=== PATIENT | female | born 1955 | race African-American/Black ===

== ENCOUNTER 2024-12-31 15:58 | Observation (INO) | payer MEDICARE, MEDICAID, SELFPAY ==
[2024-12-31] VITALS (14 sets, daily range): BP systolic 115–123; BP diastolic 46–76; PULSE 70–82; RESP 14–27; TEMP 36.4–36.8; O2SAT 93–100; BMI 20.7
[2024-12-31] MEDS: 0.9 % SODIUM CHLORIDE 1000ML 1,000 ML 999 ML IV (12:35)
[2024-12-31 12:44] LABS: Hematocrit 36.7 % (37.0-47.0); Hemoglobin 11.8 g/dL (12.2-16.2); Immature Granulocytes % 0.6 %; Mean Corpuscular HGB Conc 32.2 g/dL (31.8-35.4); Mean Corpuscular Hemoglobin 28.7 pg (27.0-31.2); Mean Corpuscular Volume 89.3 fl (81-99); Nucleated Red Blood Cells % 0 %; Platelet Count 502 K/mm3 (142-424); Red Blood Count 4.11 M/mm3 (4.20-5.40); Red Cell Distribution Width-SD 38.5 fL; Reticulocyte % (Auto) 1.9 % (0.9-3.2); White Blood Count 9.6 K/mm3 (4.8-10.8)
[2024-12-31 12:53] LABS: Activated Partial Thrombo Time 25.1 seconds (22.8-30.6); INR 1.16 (0.9-1.1); Prothrombin Time 12.7 seconds (10.1-12.5)
[2024-12-31 14:18] LABS: Vitamin B12 162 pg/mL (239-931)
[2024-12-31 14:52] LABS: Anion Gap 12.6 mEq/L (5-15); Blood Urea Nitrogen 15 mg/dl (7-17); Carbon Dioxide 26 mmol/L (22.0-30.0); Chloride 101 mmol/L (98-107); Creatinine,Serum 0.90 mg/dl (0.52-1.04); Estimated Glomerular Filt Rate 62 ml/min (>60); GFR (African American) 75 ML/MIN (>60); Glucose 109 mg/dl (74-100); Potassium 4.6 mmoL/L (3.5-5.1); Sodium 135 mmol/L (136-145)
[2024-12-31 14:53] LABS: Alanine Aminotransferase 14 U/L (12-78); Aspartate Amino Transferase 25 U/L (14-36); Bilirubin,Total 0.5 mg/dl (0.2-1.3); Calcium 12.9 mg/dl (8.4-10.2)
[2024-12-31 14:54] LABS: Albumin Level 2.9 g/dl (3.5-5.0); Albumin/Globulin Ratio 1.0 (1.1-1.8); Alkaline Phosphatase 174 U/L (38-126); Globulin 3.0 g/dL (1.3-3.2); Total Protein,Serum 5.9 g/dl (6.3-8.2)
[2024-12-31] MEDS: VITAMIN B-12 1,000 MCG 1ML VIAL 1000 MCG (15:13)
[2024-12-31 15:19] LABS: Ferritin 524 ng/ml (11.1-264)
[2024-12-31 15:38] LABS: Iron 38 ug/dL (37-170)
[2024-12-31 15:54] LABS: Total Iron Binding Capacity 186 ug/dL (265-497)
--- NOTE | 2024-12-31 16:08 | PC.NURSE ---
Patient arrived to ICU at this time.
--- NOTE | 2024-12-31 16:17 | PC.NURSE ---
1400-Called report to [place] in step down then pt taken to ICU by wheelchair. Pt's sister and niece present with pt.
--- NOTE | 2024-12-31 16:49 | EXP.HP ---
History of Present Illness *Admission Date: 12/31/24 *Reason for visit:: Hypercalcemia, weakness *History of present illness: Ms. Cartagena is a 69-year-old female with history of glaucoma, on eyedrops but no other medications. No other significant history. She presents with hypercalcemia identified on outpatient labs/preop labs to oncology clinic. She reports that for the past 6 months she been having abnormal uterine bleeding. Was found to have fibroids, 1 of concerning appearance by her edging machine catcher.Be having hysterectomy at [facility] when she was found to have hypercalcemia on preoperative labs. Calcium was 12.7. On repeat labs on arrival today to oncology, found to have calcium of 12.8. 1 L of IV fluids administered in infusion prior to checking her calcium level. Oncology was therefore concerned and requested admission for further management of hypercalcemia. Patient reports some mild constipation but does have bowel movements every day. Denies any change in mentation, muscle cramps, change in mood. No nausea or vomiting. Increased weakness however. Getting around with a wheelchair due to fatigue and weakness. This been going on for several months. Progressing over the past month. Stable on room air. Afebrile. Alert and oriented x 4. Family at bedside [facility] Disclaimer: The information contained in this section may have been updated after the patient was seen, as this information can be updated by other users. Medical History Fibroid tumor Surgical History H/O section Social History Smoking Status: Never smoker alcohol intake: never current occupational status: retired Travel in the last 8 weeks?: None Have you lived/traveled outside US in past 30 days?: No Contact w/someone who lives/traveled outside US past 30 days?: No Exposure to someone with infectious disease in past 14 days?: No Do you have a fever (greater than 100.4 F or 38 C)?: No Have you tested positive for COVID-19?: No Exposed to someone with COVID-19 in past 14 days?: No Do you have a sore throat?: No Do you have a cough?: No Do you have any weakness?: No Do you have any diarrhea?: No Are you experiencing any unusual bleeding?: No Do you have any muscle aches/pain?: No Do you have any abdominal pain?: No Are you experiencing loss of taste or smell?: No Other Medical History Have you received the Flu Vaccine for this season: Yes Have you received the Pneumonia Vaccine: No Review of Systems Review of Systems Review of systems (narrative): 14 point review of systems performed, pertinent positives and negatives as per [facility] Meds Home Medications and Allergies Home Medications ?Medication ?Instructions ?Recorded ?Confirmed ?Type bimatoprost 0.01 % eye drops 1 drp Eye-Both HS 12/31/24 12/31/24 History ([place]igan) timolol maleate 0.5 % eye drops 1 drp Eye-Both DAILY 12/31/24 12/31/24 History New Prescriptions to Start Prescriptions: Allergies Allergy/AdvReac Type Severity Reaction Status Date / Time No Known Allergies Allergy Verified 12/31/24 11:12 Exam Data for Last 24 hours Vital signs and Labs for Last 24 Hours: Temp Pulse Resp BP Pulse Ox O2 Del Method 98.2 F 78 16 116/58 L 93 L Room Air 12/31/24 16:18 12/31/24 16:21 12/31/24 15:15 12/31/24 16:18 12/31/24 16:13 12/31/24 16:13 Laboratory Results - last 24 hr 12/31/24 12:20: WBC 9.6, RBC 4.11 L, Hgb 11.8 L, Hct 36.7 L, MCV 89.3, MCH 28.7, MCHC 32.2, RDW 11.9, Plt Count 502 H, MPV 9.7, Neut % (Auto) 72.4, Lymph % (Auto) 17.1, [place] % (Auto) 9.4 H, Eos % (Auto) 0.2, Baso % (Auto) 0.3, Neut # (Auto) 6.9, Lymph # (Auto) 1.6, [place] # (Auto) 0.9, Eos # (Auto) 0.0, Baso # (Auto) 0.0, Retic Count (auto) 1.9, PT 12.7 H, INR 1.16 H, APTT 25.1, Sodium 135 L, Potassium 4.6, Chloride 101, Carbon Dioxide 26, Anion Gap 12.6, BUN 15, Creatinine 0.90, Estimated GFR 62, Est GFR ( Amer) 75, Glucose 109 H, Calcium 12.9 H*, Iron 38, TIBC 186 L, Iron Saturation 20.49813, Ferritin 524 H, Total Bilirubin 0.5, AST 25, ALT 14, Alkaline Phosphatase 174 H, Lactate Dehydrogenase 216 L, Total Protein 5.9 L, Albumin 2.9 L, Globulin 3.0, Albumin/Globulin Ratio 1.0 L, Vitamin B12 162 L, PTH Intact 14.4, Direct Antiglob Test Negative I & O for Last 24 hours: Intake & Output 12/28/24 12/29/24 12/30/24 12/31/24 23:59 23:59 23:59 23:59 Intake Total 1000 / 1000 Balance 1000 / 1000 Weight 58.4 kg Constitutional Constitutional: no acute distress, average body habitus and cooperative *Routine HEENT Exam Head: Present normocephalic Eye: Present EOMI and PERRL ENT: Present mucous membranes moist *Routine Neck Exam Neck: Present supple; Absent lymphadenopathy *Routine Respiratory Exam Respiratory: Present CTA bilaterally *Routine Cardiovascular Exam Cardiovascular: Present RRR *Routine Abdominal Exam Abdominal: Present soft, normoactive bowel sounds and tenderness (Left upper quadrant) *Routine Rectal Exam Rectal:: deferred *Routine Genitalia Exam Genitalia:: deferred *Routine Extremities Exam Extremities: Absent cyanosis, clubbing or edema *Routine Skin Exam Skin: Present warm; Absent rash *Routine Neurological Exam Neurological: Present alert, oriented X3 and moving all extremities; Absent altered mental status Assessment and Plan *Assessment and plan (1) Hypercalcemia: Status: Acute Category: Medical Code(s): E83.52 - Hypercalcemia (2) Blood loss anemia: Status: Acute Category: Medical Code(s): D50.0 - Iron deficiency anemia secondary to blood loss (chronic) (3) Glaucoma: Status: Acute Category: Medical Code(s): H40.9 - Unspecified glaucoma (4) Hypoalbuminemia: Status: Acute Category: Medical Code(s): E88.09 - Other disorders of plasma-protein metabolism, not elsewhere classified (5) Uterine fibroid: Status: Acute Category: Medical Code(s): D25.9 - Leiomyoma of uterus, unspecified (6) Abnormal uterine bleeding: Status: Acute Category: Medical Code(s): N93.9 - Abnormal uterine and vaginal bleeding, unspecified Plan 69-year-old female with abnormal uterine bleeding. On her preop testing prior to hysterectomy was found to have hypercalcemia. Sent to oncology clinic for evaluation. Had discussion with oncologist to request admission for treatment of hypercalcemia and further workup of patient's anemia. I decided to admit for further care. Calcium severely elevated at 12.8. Initiating medical management. Necessitating inpatient care. Problems addressed as follows: Anemia Abnormal uterine bleeding Hypercalcemia Hypoalbuminemia - Patient has anemia with hemoglobin 11.8, has been having abnormal uterine bleeding for 6 months - Seen in oncology today, discussed case with oncologist, request admission for management of hypercalcemia. Also requests B12 injections daily while admitted. Has low B12 level at 162. - Albumin low at 2.9, unclear etiology. - Further workup for hypercalcemia including CT with contrast of chest abdomen pelvis - PTH intact of 14, within normal range. Total protein low at 5.9. Liver enzymes normal. Ferritin high at 524. Calcium 12.9. TIBC of 186. Iron saturation 20%. MCV normal at 89. - Repeat CBC, CMP, magnesium ordered for the morning - Ionized calcium, haptoglobin, peripheral smear and reticulocyte count pending - Will consider gynecology eval in the morning if bleeding continues to persist and is significant Initiate zoledronic acid 4 mg IV once in the morning for hypercalcemia Initiate calcitonin 250 units subcu twice daily LR at 100 cc an hour along with Lasix 40 mg IV once. Resume home timolol and bimatoprost eyedrops for glaucoma Lovenox 40 mg subcu daily Regular diet Full code
--- NOTE | 2024-12-31 17:01 | PC.NURSE ---
Primary RN educated patient on authorization of release of information to get patients records from [facility]. Patient verbalizes understanding. Paperwork faxed and placed in patients chart. Continuation of care plan.
--- NOTE | 2024-12-31 17:05 | DIET.NUTRFU ---
Addendum entered by Darleen Santiago RD, LD 12/31/24 17:09: Saw Dr Tinoco earlier today, She reports that over the last approximately 2 months she has lost 15 pounds with decreased appetite. Will add high protein milkshake and monitor Original Note: Consulted for decreased appetite at home, ordered regular diet. Will monitor intake and evaluate for supplement need.
[2024-12-31] MEDS: LACTATED RINGERS 1000ML 1,000 ML 100 ML IV (17:30)
--- NOTE | 2024-12-31 17:30 | PC.NURSE ---
notified of patients complaint of vaginal bleeding. Per intake specialist, wants Vitamin B12 daily x7 days. notified. No new orders received. Continuation of care plan.
--- NOTE | 2024-12-31 17:32 | PC.NURSE ---
Primary RN notified that Calcitonin medication as ordered on MAY is unavailable at this time. No new orders received. Continuation of care plan.
[2024-12-31 18:30] LABS: Folate 13.80 ng/mL
[2024-12-31] MEDS: FUROSEMIDE 40MG/4ML VIAL 40 MG IV (18:44)
--- NOTE | 2024-12-31 19:00 | PC.NURSE ---
Records obtained from [facility] at this time. notified. Continuation of care plan.
--- NOTE | 2024-12-31 19:54 | HMH.ITSTN ---
This grade teacher spoke with hospitalist Anika regarding premedication for this patient. Anika stated that the solu-medrol had to be given 4 hours prior to the patient receiving contrast and the benadryl had to be given 1 hour prior. Anika stated that MD Patrick said that the scan can wait until tomorrow morning. This grade teacher spoke with the patients nurse and the nurse will begin premedicating the patient at 6 am.
[2025-01-01] VITALS (30 sets, daily range): BP systolic 98–124; BP diastolic 44–73; PULSE 64–88; RESP 12–23; TEMP 36.5–37.1; O2SAT 91–100; BMI 20.3
[2025-01-01] MEDS: LACTATED RINGERS 1000ML 1,000 ML 100 ML IV (03:55)
[2025-01-01] MEDS: METHYLPREDNISOLONE SOD SUCC 125MG VIAL 125 MG IV (05:52)
--- NOTE | 2025-01-01 06:00 | CT_ITS ---
PROCEDURE INFORMATION: Exam: CT Chest With Contrast; Diagnostic Exam date and time: 01/01/2025 10:14 AM Age: 69 years old Clinical indication: Mass, lump, or swelling in the chest; Additional info: Eval for masses, has unexplained hypercalcemia TECHNIQUE: Imaging protocol: Diagnostic computed tomography of the chest with contrast. Radiation optimization: All CT scans at this facility use at least one of these dose optimization techniques: automated exposure control; mA and/or kV adjustment per patient size (includes targeted exams where dose is matched to clinical indication); or iterative reconstruction. Contrast material: ISOVUE; Contrast volume: 75 ml; Contrast route: IV; COMPARISON: CT CHEST W CON 01/01/2025 10:14 AM FINDINGS: Lungs: Multiple nodules in both lungs likely represent metastatic disease. Mild patchy opacities in both lung bases likely represent atelectasis or infection. Pleural spaces: Unremarkable. No pneumothorax. No pleural effusion. Heart: Unremarkable. No cardiomegaly. No pericardial effusion. Mediastinal space: Heterogenous mediastinal mass with calcifications measuring 5.3 x 5.2 x 14 cm abuts the thyroid gland. This large mass extends from the superior mediastinum to the inferior mediastinum and involves the anterior compartment. Lymph nodes: Unremarkable. No enlarged lymph nodes. Vasculature: The ascending aorta at the level of the right pulmonary artery measures 2.7 cm. The main pulmonary artery at the level of the right pulmonary artery measures 2 cm. No evidence of acute pulmonary embolism upto the subsegmental level. Bones/joints: Unremarkable. No acute fracture. Soft tissues: Unremarkable. IMPRESSION: 1. Large heterogenous mediastinal mass with calcifications may represent metastatic disease, thyroid cancer, teratoma, lymphoma. 2. Multiple nodules in both lungs likely represent metastatic disease. COMMENTS: Consistent with the [employer]'s Incidental Findings Committee white paper (J Am Jeannette Radiol 2015): In patients aged 35 years and older with an incidental thyroid nodule equal to or greater than 1.[address], MRI or extrathyroidal US, further evaluation with dedicated thyroid US is recommended for patients with normal life expectancy and without comorbidities. For smaller nodules without suspicious features, no further evaluation or follow up is recommended.
--- NOTE | 2025-01-01 06:00 | CT_ITS ---
PROCEDURE INFORMATION: Exam: CT Abdomen And Pelvis With Contrast Exam date and time: 01/01/2025 10:14 AM Age: 69 years old Clinical indication: Mass, lump, or swelling; Additional info: Eval fibroids and for abdominal masses TECHNIQUE: Imaging protocol: Computed tomography of the abdomen and pelvis with contrast. Radiation optimization: All CT scans at this facility use at least one of these dose optimization techniques: automated exposure control; mA and/or kV adjustment per patient size (includes targeted exams where dose is matched to clinical indication); or iterative reconstruction. Contrast material: ISOVUE; Contrast volume: 75 ml; Contrast route: IV; COMPARISON: CT CHEST W CON 01/01/2025 10:14 AM FINDINGS: Lungs: Nodule measuring 6 mm in the right lung base. Mild atelectasis is seen in both lung bases. Liver: Normal. No mass. Gallbladder and biliary ducts: Normal. No calcified stones. No ductal dilation. Pancreas: Normal. No ductal dilation. Spleen: Normal. No splenomegaly. Adrenal glands: Normal. No mass. Kidneys and ureters: Normal. No hydronephrosis. Stomach and bowel: Unremarkable. No obstruction. No mucosal thickening. Appendix: No evidence of appendicitis. Intraperitoneal space: No evidence of free air in the abdomen. Vasculature: Unremarkable. No abdominal aortic aneurysm. Lymph nodes: Unremarkable. No enlarged lymph nodes. 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 Reproductive: The uterus shows multiple heterogenous masses the largest measuring 7 cm in the fundus. These may represent fibroids however heterogenous density and protruding growth in the endometrial cavity may represent leiomyosarcoma, endometrial carcinoma or apparent. A mass measuring 3.6 cm is noted in the cervix/vagina. A large calcified fibroid measuring 4.7 cm in size from the left wall of the uterus. Bones/joints: Hypodensity of the level of S2 may represent a meningocele. Soft tissues: Unremarkable. IMPRESSION: 1. The uterus shows multiple heterogenous masses the largest measuring 7 cm in the fundus. These may represent fibroids however heterogenous density and protruding growth in the endometrial cavity may represent leiomyosarcoma, endometrial carcinoma. A mass measuring 3.6 cm is noted in the cervix/vagina. A large calcified fibroid measuring 4.7 cm in size from the left wall of the uterus. 2. 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 3. Nodule measuring 6 mm in the right lung base. Metastatic disease is not entirely excluded.
[2025-01-01 07:23] LABS: Nucleated Red Blood Cells % 0 %
[2025-01-01 07:29] LABS: Albumin Level 3.1 g/dl (3.5-5.0); Chloride 99 mmol/L (98-107); Hematocrit 32.4 % (37.0-47.0); Immature Granulocytes % 0.4 %; Mean Corpuscular HGB Conc 31.5 g/dL (31.8-35.4); Mean Corpuscular Hemoglobin 28.0 pg (27.0-31.2); Mean Corpuscular Volume 89.0 fl (81-99); Platelet Count 403 K/mm3 (142-424); Red Blood Count 3.64 M/mm3 (4.20-5.40); Red Cell Distribution Width-SD 38.1 fL; White Blood Count 9.1 K/mm3 (4.8-10.8)
[2025-01-01 07:30] LABS: Hemoglobin 10.2 g/dL (12.2-16.2); Potassium 3.9 mmoL/L (3.5-5.1); Sodium 133 mmol/L (136-145)
[2025-01-01 07:32] LABS: Alanine Aminotransferase 14 U/L (12-78); Albumin/Globulin Ratio 0.9 (1.1-1.8); Anion Gap 8.9 mEq/L (5-15); Aspartate Amino Transferase 28 U/L (14-36); Bilirubin,Total 0.5 mg/dl (0.2-1.3); Blood Urea Nitrogen 13 mg/dl (7-17); Carbon Dioxide 29 mmol/L (22.0-30.0); Creatinine Clearance Estimated 49 mL/min (50-200); Creatinine,Serum 0.90 mg/dl (0.52-1.04); Estimated Glomerular Filt Rate 62 ml/min (>60); GFR (African American) 75 ML/MIN (>60); Globulin 3.6 g/dL (1.3-3.2); Total Protein,Serum 6.7 g/dl (6.3-8.2)
[2025-01-01 07:33] LABS: Alkaline Phosphatase 150 U/L (38-126); Glucose 94 mg/dl (74-100); Magnesium 1.7 mg/dl (1.6-2.3)
[2025-01-01 07:37] LABS: Calcium 12.1 mg/dl (8.4-10.2)
--- NOTE | 2025-01-01 08:13 | HMH.PHAINT1 ---
Pharmacy Intervention Comments: MEDICATION RECONCILIATION COMPLETED ON PATIENT USING EXTERNAL FILL HISTORY FROM PHARMACY. -ANNALISE BUSH, [place]
[2025-01-01] MEDS: CALCITONIN 200IU/ML INJ VIAL 250 UNIT SUBCUT (08:59)
[2025-01-01] MEDS: TIMOLOL 0.5% OPTH SOLN 5ML OP (09:00)
[2025-01-01] MEDS: ZOLEDRONIC ACID 4 MG in 0.9 % SODIUM CHLORIDE 100 ML 420 MG IV (09:10)
--- NOTE | 2025-01-01 09:20 | PC.NURSE ---
Primary RN spoke with radiology. Patients imaging scheduled for 1000. Patient medicated per MAY. Continuation of care plan.
--- NOTE | 2025-01-01 09:43 | EXP.ACUTE.PN ---
Subjective *Date: 01/01/25 *Time: 13:19 Interval history: Continues to feel quite weak. Alert and oriented x 3. No nausea or vomiting. Still having vaginal discharge. Afebrile overnight. Stable on room air Medical Exam Vital signs and Labs for Last 24 Hours: Vital Signs Temp Pulse Pulse Resp BP BP BP 01/01/25 09:00 01/01/25 08:08 01/01/25 08:00 88 16 110/52 L 01/01/25 08:00 83 01/01/25 07:45 74 18 01/01/25 07:30 75 13 01/01/25 07:29 01/01/25 07:25 01/01/25 07:15 77 14 01/01/25 07:00 86 16 01/01/25 06:37 01/01/25 06:00 68 23 111/44 L 01/01/25 05:00 01/01/25 04:10 97.7 F 74 15 102/58 L 01/01/25 04:00 67 16 102/58 L 01/01/25 04:00 72 01/01/25 02:44 01/01/25 02:00 85 22 102/57 L 01/01/25 02:00 01/01/25 01:00 01/01/25 00:00 98.3 F 13 98/58 L 01/01/25 00:00 77 16 98/58 L 01/01/25 00:00 88 12/31/24 22:59 12/31/24 22:11 17 12/31/24 21:45 74 27 H 12/31/24 20:40 12/31/24 20:00 97.8 F 75 15 123/46 L 12/31/24 20:00 82 16 123/46 L 12/31/24 20:00 77 12/31/24 19:57 12/31/24 19:00 12/31/24 18:00 70 16 115/76 12/31/24 17:45 72 15 12/31/24 17:30 74 14 12/31/24 17:00 77 22 12/31/24 17:00 12/31/24 16:21 78 12/31/24 16:18 98.2 F 116/58 L 12/31/24 16:13 12/31/24 15:15 73 16 119/51 L 12/31/24 13:35 73 16 117/50 L 12/31/24 12:35 97.6 F 75 16 117/49 L Pulse Ox O2 Del Method 01/01/25 09:00 Room Air 01/01/25 08:08 Room Air 01/01/25 08:00 91 L Room Air 01/01/25 08:00 01/01/25 07:45 94 L Room Air 01/01/25 07:30 95 Room Air 01/01/25 07:29 92 L Room Air 01/01/25 07:25 Room Air 01/01/25 07:15 96 Room Air 01/01/25 07:00 96 Room Air 01/01/25 06:37 Room Air 01/01/25 06:00 96 Room Air 01/01/25 05:00 Room Air 01/01/25 04:10 96 Room Air 01/01/25 04:00 96 Room Air 01/01/25 04:00 01/01/25 02:44 Room Air 01/01/25 02:00 95 Room Air 01/01/25 02:00 Room Air 01/01/25 01:00 Room Air 01/01/25 00:00 95 Room Air 01/01/25 00:00 96 Room Air 01/01/25 00:00 12/31/24 22:59 Room Air 12/31/24 22:11 12/31/24 21:45 96 12/31/24 20:40 Room Air 12/31/24 20:00 97 Room Air 12/31/24 20:00 97 Room Air 12/31/24 20:00 12/31/24 19:57 96 Room Air 12/31/24 19:00 Room Air 12/31/24 18:00 94 L Room Air 12/31/24 17:45 97 Room Air 12/31/24 17:30 100 Room Air 12/31/24 17:00 96 Room Air 12/31/24 17:00 Room Air 12/31/24 16:21 12/31/24 16:18 12/31/24 16:13 93 L Room Air 12/31/24 15:15 12/31/24 13:35 12/31/24 12:35 98 Room Air Intake and Output 12/31/24 01/01/25 01/01/25 23:59 07:59 15:59 Intake Total 120 / 1120 1200 / 1200 Output Total 1550 / 2350 1100 / 1100 Balance -1430 / -1230 100 / 100 Intake: Intake, Oral Amount 120 / 120 200 / 200 Intake, Total IV Amount 1000 / 1000 Lactated Ringers 1000ML 1,000 1000 / 1000 ml @ 100 mls/hr IV .Q10H [facility] Rx #:[id number] Output: Output, Urine Amount 1550 / 2350 1100 / 1100 Other: Number of Voids 1 1 Number of Bowel Movements 1 Weight 57.5 kg Patient Weight 01/01/25 23:59 Weight 57.5 kg Laboratory Results - last 24 hr 12/31/24 12:20: WBC 9.6, RBC 4.11 L, Hgb 11.8 L, Hct 36.7 L, MCV 89.3, MCH 28.7, MCHC 32.2, RDW 11.9, Plt Count 502 H, MPV 9.7, Neut % (Auto) 72.4, Lymph % (Auto) 17.1, [place] % (Auto) 9.4 H, Eos % (Auto) 0.2, Baso % (Auto) 0.3, Neut # (Auto) 6.9, Lymph # (Auto) 1.6, [place] # (Auto) 0.9, Eos # (Auto) 0.0, Baso # (Auto) 0.0, Retic Count (auto) 1.9, Haptoglobin 470 H, PT 12.7 H, INR 1.16 H, APTT 25.1, Sodium 135 L, Potassium 4.6, Chloride 101, Carbon Dioxide 26, Anion Gap 12.6, BUN 15, Creatinine 0.90, Estimated GFR 62, Est GFR ( Amer) 75, Glucose 109 H, Calcium 12.9 H*, Iron 38, TIBC 186 L, Iron Saturation 20.85893, Ferritin 524 H, Total Bilirubin 0.5, AST 25, ALT 14, Alkaline Phosphatase 174 H, Lactate Dehydrogenase 216 L, Total Protein 5.9 L, Albumin 2.9 L, Globulin 3.0, Albumin/Globulin Ratio 1.0 L, Vitamin B12 162 L, Folate 13.80, PTH Intact 14.4, Direct Antiglob Test Negative 01/01/25 07:05: WBC 9.1, RBC 3.64 L, Hgb 10.2 L D, Hct 32.4 L, MCV 89.0, MCH 28.0, MCHC 31.5 L, RDW 11.9, Plt Count 403, MPV 9.5, Neut % (Auto) 62.6, Lymph % (Auto) 24.9, [place] % (Auto) 11.3 H, Eos % (Auto) 0.5, Baso % (Auto) 0.3, Neut # (Auto) 5.7, Lymph # (Auto) 2.3, [place] # (Auto) 1.0, Eos # (Auto) 0.1, Baso # (Auto) 0.0, Sodium 133 L, Potassium 3.9, Chloride 99, Carbon Dioxide 29, Anion Gap 8.9, BUN 13, Creatinine 0.90, Estimated Creat Clear 49, Estimated GFR 62, Est GFR ( Amer) 75, Glucose 94, Calcium 12.1 H, Magnesium 1.7, Total Bilirubin 0.5, AST 28, ALT 14, Alkaline Phosphatase 150 H, Total Protein 6.7, Albumin 3.1 L, Globulin 3.6 H, Albumin/Globulin Ratio 0.9 L I & O for Labs for Last 24 Hours: Intake & Output 12/29/24 12/30/24 12/31/24 01/01/25 23:59 23:59 23:59 23:59 Intake Total 1120 / 1120 1200 / 1200 Output Total 1550 / 2350 1100 / 1100 Balance -430 / -1230 100 / 100 Weight 58.4 kg 57.5 kg Constitutional: Present no acute distress, average body habitus, chronically ill appearing and cooperative Comment:: Generalized fatigue/weakness Head: Present atraumatic and normocephalic ENT: Present normal exam Respiratory: Present normal respiratory effort; Absent rhonchi, wheezes or crackles Cardiac: Present Reg Rate and Rhythm GI: Present soft, tenderness (Lower abdomen) and normal bowel sounds; Absent distention Extremities: Present normal inspection and full ROM Skin: Present intact; Absent erythema Neuro: Present Grossly Intact, alert, awake, oriented x 3 and moves all extremities Assessment and Plan *Assessment and plan (1) Hypercalcemia: Status: Acute Category: Medical Code(s): E83.52 - Hypercalcemia (2) Blood loss anemia: Status: Acute Category: Medical Code(s): D50.0 - Iron deficiency anemia secondary to blood loss (chronic) (3) Glaucoma: Status: Acute Category: Medical Code(s): H40.9 - Unspecified glaucoma (4) Hypoalbuminemia: Status: Acute Category: Medical Code(s): E88.09 - Other disorders of plasma-protein metabolism, not elsewhere classified (5) Uterine fibroid: Status: Acute Category: Medical Code(s): D25.9 - Leiomyoma of uterus, unspecified (6) Abnormal uterine bleeding: Status: Acute Category: Medical Code(s): N93.9 - Abnormal uterine and vaginal bleeding, unspecified (7) Mediastinal mass: Status: Acute Category: Medical Code(s): J98.59 - Other diseases of mediastinum, not elsewhere classified (8) Lung nodule, multiple: Status: Acute Category: Medical Code(s): R91.8 - Other nonspecific abnormal finding of lung field Plan 69-year-old female with abnormal uterine bleeding. On her preop testing prior to hysterectomy was found to have hypercalcemia. Sent to oncology clinic for evaluation. Had discussion with oncologist to request admission for treatment of hypercalcemia and further workup of patient's anemia. I decided to admit for further care. Calcium severely elevated at 12.8. Initiating medical management. Necessitating inpatient care. Workup this morning with persistent hypercalcemia. Chest imaging concerning for masses in uterus, nodules in the lung, mediastinal mass. Problems addressed as follows: Anemia Abnormal uterine bleeding Hypercalcemia Hypoalbuminemia Lung nodules Suspected leiomyosarcoma Mediastinal mass -Anemia slightly worse today however has received IV fluids. Hemoglobin 10.2 - Repeat CBC, CMP, magnesium ordered for the morning. -Discussed possible transfer with patient and reaching out to or [facility] for more urgent eval given findings most consistent with metastatic cancer in chest, lungs, uterus. -Continue medical management of her hypercalcemia. Calcium 12.1 today. Discontinue IV fluids. Receiving zoledronic acid 4 mg IV once today and calcitonin 250 units subcu twice today - Albumin somewhat better today at 3.1. Magnesium 1.7. Potassium 3.9. Kidney function normal with BUN 13, creatinine 0.9 - CT chest abdomen pelvis with contrast obtained today. CT chest showing large 5 x 5 x 14 cm mediastinal mass with calcification on my review. Also has several lung nodules. Redemonstration of mass in uterus concerning for fibroid versus leiomyosarcoma. This was demonstrated on her MRI abdomen pelvis obtained at an outside facility that was reviewed - PTH intact of 14, within normal range. PTH RP ordered and pending - Ionized calcium, haptoglobin, peripheral smear and reticulocyte count pending Resume home timolol and bimatoprost eyedrops for glaucoma Holding anticoagulation due to increased uterine bleeding Regular diet Full code
--- NOTE | 2025-01-01 10:00 | PC.NURSE ---
Patient taken to radiology via wheelchair accompanied by Primary RN and radiology staff.
[2025-01-01] MEDS: IOPAMIDOL-370 (76%);100ML BOTTLE 75 ML IV (10:17)
[2025-01-01] MEDS: SODIUM CHLORIDE 0.9% 10ML SYR (RAD ONLY) 10 ML IV (10:17)
--- NOTE | 2025-01-01 10:24 | PC.NURSE ---
Patient arrived back to ICU at this time. Continuation of care plan.
--- NOTE | 2025-01-01 10:35 | PC.NURSE ---
Primary RN notified of patient having cloudy, foul smelling urine at 0900. states get a UA by I&O Catheter. Continuation of care plan.
--- NOTE | 2025-01-01 11:30 | PC.NURSE ---
Primary RN educated patient on I&O Catheter for a UA. Patient verbalizes understanding. Patient refuses I&O Catheter at this time. Continuation of care plan.
--- NOTE | 2025-01-01 12:00 | PC.NURSE ---
PT at bedside. Continuation of care plan.
--- NOTE | 2025-01-01 12:37 | HMH.PTEV ---
Physical Therapy Evaluation Rehab PT IP Evaluation Start: 12/31/24 16:48 Freq: ONCE Status: Active Protocol: Document 01/01/25 12:16 MARIANNE (Rec: 01/01/25 12:37 MARIANNE [id number]) Subjective/History History History Pt is a 69 y/o female who presented to [facility] on 12/31/24 with hypercalcemia identified on outpatient labs/preop labs to oncology clinic. She reports that for the past 6 months she been having abnormal uterine bleeding. 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 Be having hysterectomy at [facility] when she was found to have hypercalcemia on preoperative labs. Calcium was 12.7. On repeat labs on arrival today to oncology, found to have calcium of 12.8. 1 L of IV fluids administered in infusion prior to checking her calcium level. Oncology was therefore concerned and requested admission for further management of hypercalcemia. Patient reports some mild constipation but does have bowel movements every day. Denies any change in mentation, muscle cramps, change in mood. No nausea or vomiting. Increased weakness however. Getting around with a wheelchair due to fatigue and weakness. This been going on for several months. Progressing over the past month. Pt had an abdomen/pelvis CT on 01/01/25 with impression of 1. The uterus shows multiple heterogenous masses the largest measuring 7 cm in the fundus. These may represent fibroids however heterogenous density and protruding growth in the endometrial cavity may represent leiomyosarcoma, endometrial carcinoma. A mass measuring 3.6 cm is noted in the cervix/vagina. A large calcified fibroid measuring 4.7 cm in size from the left wall of the uterus. 2. 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 3. Nodule measuring 6 mm in the right lung base. Metastatic disease is not entirely excluded. Pt also had a chest Ct on 01/01/25 with impression 1. Large heterogenous mediastinal mass with calcifications may represent metastatic disease, thyroid cancer, teratoma, lymphoma. 2. Multiple nodules in both lungs likely represent metastatic disease. Medical History: Glaucoma, Fibroid Subjective Subjective Pt reports she lives in a single story home with her sister. Pt states her sister is in good health and home with her at all times. Pt reports she typically ambulates without an assistive device but does have a rolling walker and wheelchair at home. Pt reports she is independent with ADLs and her sister drives her to doctor appointments. Pt reports she has been feeling progressively weak and tired. Pt states when she stands >1 minute she often feels fatigued and sometimes dizzy . Pt states she fell 2 days ago at home in the bathroom due to feeling dizzy, denies injuries from the fall. Pt denies further falls. Pt denies pain and agreeable to participate in PT evaluation. Pt denied dizziness or worsening fatigue with functional mobility for PT evaluation this date. New diagnosis of undergoing evaluation cancer in past 12 months? [facility] How much help from another person do you currently need... Turning from your None back to your side while in a flat bed without using bedrails? Moving from lying on A little back to sitting on the side of a flat bed without using bedrails? Moving to and from a A little bed to a chair ( including a wheelchair)? Standing up from a None chair using your arms? (e.g., wheelchair, bedside chair) Walking in hospital A little room? Climbing 3-5 steps A little with a railing? Mobility Score 20 Mobility Level [facility] Mobility 6 Walk 10 steps or more Mobility Calculator Rehab PT IP Eval Objective Appearance Patient Behavior Appropriate,Cooperative Patient Orientation Place,Name,Birthday Difficulty following none instructions Speech Pattern Clear,Appropriate Ambulation Patient Able to Yes Ambulate Ambulation Observation IP General Gait Wide Based Gait Pattern Observation Ambulation Distance 15 (feet) Ambulation Assistive Rolling Walker Device Ambulation Ability Contact Guard/Hand Hold Balance Ability to Arise Able, uses arms to help Sitting Balance Steady, safe Standing Balance Steady, wide stance Dynamic Sitting Good Balance Ability Dynamic Standing Good Balance Ability Transfers Bed Transfer Ability Supervision/Stand by Sit to Stand Bed Contact Guard/Hand Hold Transfer Ability MMT RLE PT MMT WFL LLE PT MMT WFL Rehab PT IP prob,goals,plan Problems Date of Evaluation: 01/01/25 PT IP Problems Transfers,Gait,Balance,Self care,Safety Rehab Potential Rehab Potential Good Equipment Needs Assistive Devices Rolling / Wheeled Walker Plan PT Intervention Plan Transfers,Gait,Balance,Self care,Safety,Therapeutic Exercise Other Intervention 1-2x/day Plan PT Plan Frequency Daily Duration LOS Discharge Goals Bed Transfer Ability Independent Sit to Stand Chair Independent Transfer Ability Ambulation Assistive Rolling Walker Device Ambulation Distance 40 (feet) Discharge Plan PT Discharge Plan Patient presents below baseline at this time in functional mobility, strength and endurance due to current medical condition. Pt would benefit from skilled PT while at [facility] to prevent further functional decline and maximize safety with mobility. Pt is most appropriate to d/c home when deemed medically necessary d/t current level of mobility, home set-up, and family support. PT recommending use of RW for gait and home health PT services to address deficits. Eval Complexity Eval Charge Codes 15133 - Low Complexity PHYSICIAN CERTIFICATION: I certify the specified therapy services for Neema Cartagena are required, authorized, and reviewed every 30 days.
--- NOTE | 2025-01-01 12:50 | PC.NURSE ---
Report called to GABY Rivero on Medical Surgical floor.
--- NOTE | 2025-01-01 13:17 | PC.NURSE ---
states I will discontinue IV fluids. GABY Rivero notified. Continuation of care plan.
--- NOTE | 2025-01-01 13:19 | PC.NURSE ---
Patient transferred to Medical Surgical floor at this time. Patient transferred via wheelchair with Medical Surgical staff.
--- NOTE | 2025-01-01 14:28 | EXP.DC.SUM ---
General Admission date:: 12/31/24 Discharge date: 01/01/25 HPI HPI HPI: Ms. Cartagena is a 69-year-old female with history of glaucoma, on eyedrops but no other medications. No other significant history. She presents with hypercalcemia identified on outpatient labs/preop labs to oncology clinic. She reports that for the past 6 months she been having abnormal uterine bleeding. 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 Calcium was 12.7. On repeat labs on arrival today to oncology, found to have calcium of 12.8. 1 L of IV fluids administered in infusion prior to checking her calcium level. Oncology was therefore concerned and requested admission for further management of hypercalcemia. Patient reports some mild constipation but does have bowel movements every day. Denies any change in mentation, muscle cramps, change in mood. No nausea or vomiting. Increased weakness however. Getting around with a wheelchair due to fatigue and weakness. This been going on for several months. Progressing over the past month. Stable on room air. Afebrile. Alert and oriented x 4. Family at bedside Hospital Course Hospital Course Hospital Course: 69-year-old female with abnormal uterine bleeding. On her preop testing prior to hysterectomy was found to have hypercalcemia. Sent to oncology clinic for evaluation. Had discussion with oncologist to request admission for treatment of hypercalcemia and further workup of patient's anemia. I decided to admit for further care. Calcium severely elevated at 12.8. Initiating medical management. Showed improvement to 12.1 by morning. Able to obtain CT chest abdomen pelvis concerning for mediastinal mass, lung nodules, possible leiomyosarcoma in her uterus. Given the extent of possible disease burden, reached out to [facility] at patient request for transfer for possible further evaluation with gynecology oncology and treatment of hypercalcemia. Graciously accepted for transfer and further management. Problems addressed as follows: Anemia, chronic blood loss over the past 6 months from uterine bleeding Abnormal uterine bleeding Hypercalcemia Hypoalbuminemia Lung nodules Suspected leiomyosarcoma Mediastinal mass -Anemia slightly worse today at 10.2. White count normal at 9.1. Platelets 403. Having mild vaginal discharge. CT chest abdomen pelvis obtained today. Imaging with contrast. Patient necessitated pretreatment due to reported allergy to contrast. Tolerated well with no shortness of breath or rash. Noted to have large 5 x 5 x 14 cm mediastinal mass with calcifications, several lung nodules. Mediastinal mass in close proximity to brachiocephalic vein with mass effect on the left brachiocephalic vein and the right atrium. redemonstration on intrauterine fibroid/masses. 2 masses with calcification. 1 concerning for leiomyosarcoma. Given her distribution of disease above and below diaphragm, reached out to [facility] for transfer and evaluation by gynecology oncology. Continued medical management for hypercalcemia. Improved to 12.1 by the morning of 01/01. Treated with 1 dose zoledronic acid 4 mg IV today and calcitonin 250 units ordered twice daily. - PTH intact of 14. PTH RP ordered and pending. Ionized calcium, haptoglobin, peripheral smear and reticulocyte still pending at time of discharge. Glaucoma: Continued home timolol and bimatoprost eyedrops for glaucoma Stable discharge and transfer to higher level of care for urgent evaluation. Total time spent on discharge 35 minutes in counseling, documentation, chart review, and direct care with patient. Exam Data for Last 24 hours Vital signs and Labs for Last 24 Hours: Temp Pulse Resp BP Pulse Ox O2 Del Method 98.8 F 65 21 109/62 L 98 Room Air 01/01/25 09:00 01/01/25 13:00 01/01/25 13:00 01/01/25 12:08 01/01/25 13:00 01/01/25 13:00 Laboratory Results - last 24 hr 12/31/24 12:20: Haptoglobin 470 H, Sodium 135 L, Potassium 4.6, Chloride 101, Carbon Dioxide 26, Anion Gap 12.6, BUN 15, Creatinine 0.90, Estimated GFR 62, Est GFR ( Amer) 75, Glucose 109 H, Calcium 12.9 H*, Iron 38, TIBC 186 L, Iron Saturation 20.09548, Ferritin 524 H, Total Bilirubin 0.5, AST 25, ALT 14, Alkaline Phosphatase 174 H, Lactate Dehydrogenase 216 L, Total Protein 5.9 L, Albumin 2.9 L, Globulin 3.0, Albumin/Globulin Ratio 1.0 L, Vitamin B12 162 L, Folate 13.80, PTH Intact 14.4, Direct Antiglob Test Negative 01/01/25 07:05: WBC 9.1, RBC 3.64 L, Hgb 10.2 L D, Hct 32.4 L, MCV 89.0, MCH 28.0, MCHC 31.5 L, RDW 11.9, Plt Count 403, MPV 9.5, Neut % (Auto) 62.6, Lymph % (Auto) 24.9, [place] % (Auto) 11.3 H, Eos % (Auto) 0.5, Baso % (Auto) 0.3, Neut # (Auto) 5.7, Lymph # (Auto) 2.3, [place] # (Auto) 1.0, Eos # (Auto) 0.1, Baso # (Auto) 0.0, Sodium 133 L, Potassium 3.9, Chloride 99, Carbon Dioxide 29, Anion Gap 8.9, BUN 13, Creatinine 0.90, Estimated Creat Clear 49, Estimated GFR 62, Est GFR ( Amer) 75, Glucose 94, Calcium 12.1 H, Magnesium 1.7, Total Bilirubin 0.5, AST 28, ALT 14, Alkaline Phosphatase 150 H, Total Protein 6.7, Albumin 3.1 L, Globulin 3.6 H, Albumin/Globulin Ratio 0.9 L I & O for Last 24 hours: Intake & Output 12/29/24 12/30/24 12/31/24 01/01/25 23:59 23:59 23:59 23:59 Intake Total 1120 / 1120 2470 / 2470 Output Total 1550 / 2350 1900 / 1900 Balance -430 / -1230 570 / 570 Weight 58.4 kg 57.5 kg Constitutional Constitutional: no acute distress, average body habitus and cooperative Comments: Generalized fatigue, alert and oriented x 4 *Routine HEENT Exam Head: Present normocephalic Eye: Present EOMI and PERRL ENT: Present mucous membranes moist *Routine Neck Exam Neck: Present supple; Absent lymphadenopathy *Routine Respiratory Exam Respiratory: Present CTA bilaterally; Absent rhonchi, wheezes or crackles *Routine Cardiovascular Exam Cardiovascular: Present RRR *Routine Abdominal Exam Abdominal: Present soft, normoactive bowel sounds and tenderness (Mild tenderness suprapubic) *Routine Rectal Exam Patient deferred: visual exam *Routine Exam Patient deferred: external exam *Routine Extremities Exam Extremities: Absent cyanosis, clubbing or edema *Routine Skin Exam Skin: Present intact and warm; Absent rash *Routine Neurological Exam Neurological: Present alert, oriented X3 and moving all extremities; Absent altered mental status Routine Psychiatric Exam Psychiatric: Present normal affect Results Data Completed and Pending Labs on day of discharge: Labs from last 24 hours 01/01/25 12/31/24 07:05 12:20 WBC 9.1 RBC 3.64 L Hgb 10.2 L D Hct 32.4 L MCV 89.0 MCH 28.0 MCHC 31.5 L RDW 11.9 Plt Count 403 MPV 9.5 Neut % (Auto) 62.6 Lymph % (Auto) 24.9 [place] % (Auto) 11.3 H Eos % (Auto) 0.5 Baso % (Auto) 0.3 Neut # (Auto) 5.7 Lymph # (Auto) 2.3 [place] # (Auto) 1.0 Eos # (Auto) 0.1 Baso # (Auto) 0.0 Haptoglobin 470 H Sodium 133 L 135 L Potassium 3.9 4.6 Chloride 99 101 Carbon Dioxide 29 26 Anion Gap 8.9 12.6 BUN 13 15 Creatinine 0.90 0.90 Estimated Creat Clear 49 Estimated GFR 62 62 Est GFR ( Amer) 75 75 Glucose 94 109 H Calcium 12.1 H 12.9 H* Magnesium 1.7 Iron 38 TIBC 186 L Iron Saturation 20.10206 Ferritin 524 H Total Bilirubin 0.5 0.5 AST 28 25 ALT 14 14 Alkaline Phosphatase 150 H 174 H Lactate Dehydrogenase 216 L Total Protein 6.7 5.9 L Albumin 3.1 L 2.9 L Globulin 3.6 H 3.0 Albumin/Globulin Ratio 0.9 L 1.0 L Vitamin B12 162 L Folate 13.80 PTH Intact 14.4 Direct Antiglob Test Negative DS: Diagnosis Discharge Diagnosis (1) Hypercalcemia: Status: Acute Code(s): E83.52 - Hypercalcemia (2) Blood loss anemia: Status: Acute Code(s): D50.0 - Iron deficiency anemia secondary to blood loss (chronic) (3) Glaucoma: Status: Acute Code(s): H40.9 - Unspecified glaucoma (4) Hypoalbuminemia: Status: Acute Code(s): E88.09 - Other disorders of plasma-protein metabolism, not elsewhere classified (5) Uterine fibroid: Status: Acute Code(s): D25.9 - Leiomyoma of uterus, unspecified (6) Abnormal uterine bleeding: Status: Acute Code(s): N93.9 - Abnormal uterine and vaginal bleeding, unspecified (7) Mediastinal mass: Status: Acute Code(s): J98.59 - Other diseases of mediastinum, not elsewhere classified (8) Lung nodule, multiple: Status: Acute Code(s): R91.8 - Other nonspecific abnormal finding of lung field Meds Home Medications and Allergies Home Medications ?Medication ?Instructions ?Recorded ?Confirmed ?Type bimatoprost 0.01 % eye drops 1 drp Eye-Both HS 12/31/24 12/31/24 History ([place]) timolol maleate 0.5 % eye drops 1 drp Eye-Both DAILY 12/31/24 12/31/24 History New Prescriptions to Start Prescriptions: Allergies Allergy/AdvReac Type Severity Reaction Status Date / Time No Known Allergies Allergy Verified 12/31/24 11:12 Discharge Plan Disposition Patient Disposition: Xfer Short-Term Hosp Condition: Fair Follow up Plan Prescriptions/Medication Reconciliation: Continued timolol maleate 0.5 % drops 1 drp Eye-Both DAILY Patient Comments: INSTILL 1 DROP INTO EACH EYE IN THE MORNING [place] 0.01 % drops 1 drp Eye-Both HS Patient Comments: INSTILL 1 DROP ONCE DAILY INTO EACH EYE AT BEDTIME Problem Reconciliation Problems Reviewed?: Yes Patient Discharge Instructions ACTIVITY: Continue current activity DIET: continue same diet Print Language: Arabic Providers Primary Care Provider: Shukri Grimes Admit Provider: Galo Patrick Attending Provider: Galo Patrick
[2025-01-01 14:51] LABS: Calcium, Ionized 7.8 mg/dL (4.5-5.6)
--- NOTE | 2025-01-01 15:36 | PC.NURSE ---
Report called to Alicja at [facility]. Ambulance called.
== END 2025-01-01 17:17 | disposition short-term general hospital (02) ==
LOC: ICU 15:59 → 2ND 01-01 12:31
PROVIDERS: Internal Medicine Medical Oncology; Admitting Provider Internal Medicine Adolescent Medicine; PCP Family Medicine; Visit Provider Internal Medicine Adolescent Medicine
DX: E83.52 Hypercalcemia (principal); D50.0 Iron deficiency anemia secondary to blood loss (chronic); H40.9 Unspecified glaucoma; D25.9 Leiomyoma of uterus, unspecified; E88.09 Other disorders of plasma-protein metabolism, not elsewhere classified; N93.9 Abnormal uterine and vaginal bleeding, unspecified; J98.59 Other diseases of mediastinum, not elsewhere classified; R91.8 Other nonspecific abnormal finding of lung field; Z79.899 Other long term (current) drug therapy
CPT/HCPCS: 36415; 71260; 74177; 80053; 82330; 82607; 82728; 82746; 83010; 83540; 83550; 83615; 83735; 83970; 85025; 85044; 85610; 85730; 86880; 96360; 96361; 96365; 96372; 96375; 97161; G0378; J0630; J1200; J1650; J1938; J2919; J3420; J3489; J7030; J7120; Q9967